=== PATIENT | female | born 1995 | race Caucasian/White ===

== ENCOUNTER 2024-09-20 15:55 | Emergency (ER) | payer MEDICAID, SELFPAY ==
[2024-09-20 16:06] VITALS: BP 100/57; PULSE 98; RESP 16; TEMP 36.9; O2SAT 99
[2024-09-20 16:07] VITALS: BMI 25.1
--- NOTE | 2024-09-20 16:18 | XR_ITS ---
Examination: CTA chest with intravenous contrast 2-D reconstructions 3-D reconstructions, vascular Date and time of exam: September 20, 2024 2101 hrs. Indications: Dyspnea cardiac palpitations and shortness of breath today, history pulmonary emboli 8 months ago CTDI: vol (mGy) 13.98 DLP: (mGycm) 344 Technique: Multiple axial sections of the thorax have been obtained. 3 mm slice thickness, from below the hemidiaphragms to above the apices of the lungs. Mediastinal and lung density settings have been obtained. 2-D sagittal and coronal reconstructions. 3-D angiographic renderings, 3-D volume renderings, 3D post processing, vascular maximum intensity projections obtained. Contrast administered is 100 cc Isovue-370 intravenous Low dose protocols were performed. One or more of the following dose reduction techniques were used; automated exposure control, adjustment of the mA and/or KV according to patient size, use of iterative reconstruction technique. Findings: No thoracic aortic aneurysm dilatation No pulmonary artery emboli No paratracheal tracheobronchial or bronchopulmonary adenopathy No pneumonia, pulmonary edema or pleural disease No visualized liver or splenic lesion as it then 10 mm cyst in the right lobe the liver No pancreatic mass Kidneys partially visualized no hydronephrosis The osseous structures are intact Impression: Negative for pulmonary artery emboli No pneumonia, pulmonary edema or pleural disease
--- NOTE | 2024-09-20 16:21 | PD.EDRME ---
Rapid Medical Screening Exam RME Arrival date/time: 09/20/24 15:55 29-year-old female with a history of SVT and PE 8 months ago reports with complaints of chest pain and shortness of breath Chief Complaint: Arrhythmia/Palpitations Time Seen by Provider: 09/20/24 16:12 Vital signs: Vital Signs Temperature 98.5 F 09/20/24 16:06 Pulse Rate 98 09/20/24 16:06 Respiratory Rate 16 09/20/24 16:06 Blood Pressure 100/57 L 09/20/24 16:06 Pulse Oximetry (%) 99 09/20/24 16:06 Oxygen Delivery Method Room Air 09/20/24 16:06
[2024-09-20 16:49] LABS: Basophils % (Auto) 0 % (0-2.5); Eosinophils # (Auto) 0.3 Thou/mm3 (0.0-0.5); Eosinophils % (Auto) 3 % (0-10); Hematocrit 41.8 % (36.0-46.0); Hemoglobin 14.2 g/dL (12.0-16.0); Immature Granulocytes % (Auto) 0 % (0-0); Immature Granulocytes Auto 0.03 Thou/mm3 (0.00-0.00); Lymphocytes # (Auto) 1.6 Thou/mm3 (1.0-4.8); Lymphocytes % (Auto) 17 % (10-50); Mean Corpuscular Volume 88 fL (80-100); Monocytes # (Auto) 0.8 Thou/mm3 (0.0-0.8); Monocytes % (Auto) 8 % (0-12); Neutrophils % (Auto) 72 % (37-80); Nucleated Red Blood Cell % 0 /100 WBC (0); Platelet Count 154 Thou/mm3 (140-440); RDW Standard Deviation 40.1 fL (36.4-46.3); Red Blood Count 4.74 Miln/mm3 (4.00-5.20); White Blood Count 9.7 Thou/mm3 (3.6-11.0)
[2024-09-20 17:07] LABS: Alanine Aminotransferase 20 U/L (10-49); Albumin, Serum 4.5 gm/dL (3.5-5.0); Albumin/Globulin Ratio 1.6 (1.2-2.2); Alkaline Phosphatase 61 U/L (46-116); Anion Gap 8 (7-16); Aspartate Amino Transferase 19 U/L (0-34); BUN/Creatinine Ratio 22 Ratio (12-20); Bilirubin,Total 0.4 mg/dL (0.3-1.2); Blood Urea Nitrogen 13 mg/dL (9-23); Calcium 9.6 mg/dL (8.3-10.6); Calcium (Corrected) 9.6 mg/dL (8.5-10.1); Carbon Dioxide 26.3 mMol/L (20.0-31.0); Chloride 105 mMol/L (98-107); Creatinine (Component) 0.6 mg/dL (0.6-1.3); Estimated Creatinine Clearance 145.9 mL/min (>60); Globulin 2.9 gm/dL (2.3-3.5); Glucose 98 mg/dL (74-106); Magnesium 1.8 mg/dL (1.6-2.6); Osmolality,Calculated 277 (275-295); Potassium 3.7 mMol/L (3.4-5.1); Sodium 139 mMol/L (136-145); Total Protein 7.4 gm/dL (5.7-8.2); Troponin I < 0.002 ng/mL (0.0-0.045); eGFR > 60 See Note
[2024-09-20 17:12] LABS: Partial Thromboplastin Time 22.2 Seconds (22.0-36.0); Prothrombin Time 11.3 Seconds (9.0-12.2)
--- NOTE | 2024-09-20 19:38 | PD.EDARRY ---
ED Arrhythmia Palp. RME/HPI General Chief Complaint: Arrhythmia/Palpitations Stated Complaint: HEART PALPITATIONS Time Seen by Provider: 09/20/24 16:12 Arrival date/time: 09/20/24 15:55 Limitations: no limitations RME / HPI RME / HPI narrative: 09/20/24 15:55 29-year-old female with a history of SVT and PE 8 months ago reports with complaints of chest pain and shortness of breath DR. ZAMUDIO MAIN ED EVALUATION: 29 year old female presents to the Emergency Department with complaints of chest pain since yesterday. Pain is described as stabbing and rated mild to moderate in severity. Associated symptoms include shortness of breath, cough, and runny nose. Patient denies any leg edema, or any other symptoms at this time. Last menstrual period was last month, unknown day. PMHx: SVT and PE 8 months ago at [place]; she states she is not taking any medication due to no insurance . Family history is significant for PE and cancer from mother. Social Hx: No tobacco, alcohol, or substance use. Related Data Previous Rx's ?Medication ?Instructions ?Recorded cyclobenzaprine 10 mg tablet 10 mg PO HS #10 tabs 06/05/22 clindamycin HCl 300 mg capsule 300 mg PO TID #30 caps 07/15/22 lidocaine HCl 2 % mucosal solution 20 ml PO TID PRN sore throat #100 07/15/22 (Lidocaine Viscous) mL Allergies Allergy/AdvReac Type Severity Reaction Status Date / Time metoprolol Allergy Severe Hives Verified 09/20/24 16:02 Review of Systems Review of Systems Systems Reviewed: All systems reviewed, normal except as documented Narrative Review of Systems: GEN: No fever, no chills, no weight loss EYES: No discharge, no visual changes, no pain HEENT: No ear pain, + congestion, no sore throat PULM: + shortness of breath, + cough CV: + chest pain, no dyspnea on exertion, no palpitations GI: No nausea, no vomiting, no diarrhea, no pain, no constipation : No frequency, no urgency and no dysuria MUSC/SKEL: No joint pain, no back pain SKIN: No rash PSYCH: No hallucinations, no depression HEME/LYMPH: No easy bleeding or bruising tendencies NEURO: No weakness, no headache Past Medical History Social History SMOKING STATUS: Never smoker SUBSTANCE USE: does not use ALCOHOL: Never Past Medical History Comments PMH COMMENT: SVT and PE 8 months ago at [place]; she states she is not taking any medication due to no insurance . Family history is significant for PE and cancer from mother. ED Exam General Limitations: Present no limitations General appearance: Present alert, in no apparent distress and other (fatigue looking) Head Head exam: Present atraumatic, normocephalic and normal inspection Eye Eye exam: Present normal appearance and EOMI; Absent miosis ENT ENT exam: Present normal exam, normal oropharynx and mucous membranes moist Neck Neck exam: Present normal inspection and trachea midline; Absent meningismus Chest Chest inspection: Present normal inspection and symmetric chest wall rise Respiratory Respiratory exam: Present normal lung sounds bilaterally Cardiovascular Cardiovascular exam: Present regular rate, tachycardia and normal heart sounds Abdominal Exam Abdominal exam: Present soft and normal bowel sounds; Absent distention, tenderness, guarding, rebound or rigidity Extremities Exam Extremities exam: Present normal inspection and full ROM Back Exam Back exam: Present normal inspection and full ROM Neurological Exam Neurological exam: Present alert, oriented X3 and normal gait; Absent motor sensory deficit Psychiatric Psychiatric exam: Present normal affect and anxious Skin Skin exam: Present warm, dry, intact and normal color Course Quality Measures none Orders Category Date Time Status CT Screening NOW Care 09/20/24 16:20 Active EKG (ED ONLY) *Do not use* NOW Care 09/20/24 16:[address] angio chest Stat Exams 09/20/24 16:18 Ordered EKG (ED Only) Stat Exams 09/20/24 16:18 Ordered CBC Stat Lab 09/20/24 16:36 Completed CMP [Comprehensive Metabolic Panel] Stat Lab 09/20/24 16:36 Completed HCG,Qualitative Serum Stat Lab 09/20/24 16:36 Received Mag [Magnesium] Stat Lab 09/20/24 16:36 Completed PT [Prothrombin Time with INR] Stat Lab 09/20/24 16:36 Completed PTT [Partial Thromboplastin Time] Stat Lab 09/20/24 16:36 Completed Troponin I Stat Lab 09/20/24 16:36 Completed Reevaluation(s) Reevaluation #1: Heart rate is 90. CT angio does not show pulmonary embolism or pneumonia. Time: 22:14 Vital Signs Vital signs: Vital Signs Temperature 98.5 F 09/20/24 16:06 Pulse Rate 98 09/20/24 16:06 Respiratory Rate 16 09/20/24 16:06 Blood Pressure 100/57 L 09/20/24 16:06 Pulse Oximetry (%) 99 09/20/24 16:06 Oxygen Delivery Method Room Air 09/20/24 16:06 Procedures -ED EKG Interpretation #1: Date of EK09/20/24 Time of EK:16 Rate: 87 Interpretation: Interpreted by me Additional EKG comment: sinus rhythm, rate 87, left atrial enlargement, nonspecific ST changes in lead 3, same nonspecific changes shown in EKG from 06/07/22. Arrhythmia/Palpitations MDM Narrative MDM Narrative:: I, Mary Tompkins, am scribing for and in the presence of Dr. Zamudio. Differential diagnosis includes PE, pneumonia, dehydration, other viral etiology, musculoskeletal. The patient has no evidence of SVT here in the emergency department. She is treated with IV fluids for her tachycardia and Toradol IV for chest wall pain.. CT angio is negative for PE, pleural effusion, or pneumonia. Labs are interpreted by me. No acute leukocytosis, anemia, or thrombocytopenia. LFTs are normal and do not suspect biliary involvement, hCG is negative. Troponin x 2 are negative. At this time I do not believe this patient has underlying coronary artery disease. Patient does not report that she was told that she has clotting disorder . Possible PE 1 year ago. She will need to follow-up with primary care to establish care. Patient data External records reviewed:: [facility] previous records (Reviewed last ED visit dated 07/15/22 discharged with the following: Pharyngitis.) Clinical information provided by:: patient Social determinants that could affect healthcare access:: none Patient has the following chronic illnesses:: SVT and PE 8-12 months ago at [place]; she states she is not taking any medication due to no insurance . Family history is significant for PE and cancer from mother. How is presenting disease/condition affected by chronic disease/condition?: exacerbated by Evaluation data The following diagnostics were reviewed and interpreted by me:: lab results, radiology exam(s) and EKG tracing(s) Lab and/or radiology exams considered but not ordered:: none Interpretation Summary: Procedure(s): CT angio chest Accession Number(s): [id number] cc: Jaspreet Cotto MD; NO PRIMARY/FAMILY,PHYSICIAN; Bobby Olivares PA-C~ Examination: CTA chest with intravenous contrast 2-D reconstructions 3-D reconstructions, vascular Date and time of exam: September 20, 2024 2101 hrs. Indications: Dyspnea cardiac palpitations and shortness of breath today, history pulmonary emboli 8 months ago CTDI: vol (mGy) 13.98 DLP: (mGycm) 344 Technique: Multiple axial sections of the thorax have been obtained. 3 mm slice thickness, from below the hemidiaphragms to above the apices of the lungs. Mediastinal and lung density settings have been obtained. 2-D sagittal and coronal reconstructions. 3-D angiographic renderings, 3-D volume renderings, 3D post processing, vascular maximum intensity projections obtained. Contrast administered is 100 cc Isovue-370 intravenous Low dose protocols were performed. One or more of the following dose reduction techniques were used; automated exposure control, adjustment of the mA and/or KV according to patient size, use of iterative reconstruction technique. Findings: No thoracic aortic aneurysm dilatation No pulmonary artery emboli No paratracheal tracheobronchial or bronchopulmonary adenopathy No pneumonia, pulmonary edema or pleural disease No visualized liver or splenic lesion as it then 10 mm cyst in the right lobe the liver No pancreatic mass Kidneys partially visualized no hydronephrosis The osseous structures are intact Impression: Negative for pulmonary artery emboli No pneumonia, pulmonary edema or pleural disease Dictated By: Jaspreet Cotto MD Medications / Prescriptions Medications or Prescriptions considered but not ordered:: none Medication administrations:: see above if any Consultations Consultation(s) initiated? (list below): No Diagnosis Differential diagnosis arrhythmia/palpitations: palpitations and other (PE, pneumonia, dehydration, arrhythmia, ) Most likely diagnosis given after review of the tests above:: see below Admission Indicated Admission indicated?: not indicated Admission Request Was there a request for admission?: No Disposition Plan Disposition Plan: Discharge Discharge Attestation Discharge Attestation: The patient and all family members were given an opportunity to ask questions and understood the discharge instructions. Discharge instructions specifically effects, indications for sooner follow up or return to the emergency department, and the expected course of current diagnosis. Patient condition: Stable Discharge Plan Plan Patient Disposition: HOME (Self Care) Patient condition on transfer: Stable Prescriptions/Referrals Prescriptions/Med Rec: No Action cyclobenzaprine 10 mg tablet 10 mg PO HS Qty: 10 0RF clindamycin HCl 300 mg capsule 300 mg PO TID Qty: 30 0RF lidocaine HCl [Lidocaine Viscous] 2 % solution 20 ml PO TID PRN (Reason: sore throat) Qty: 100 0RF Referrals: No Primary/Family,Physician [Primary Care Provider] - In 1 week Problem List Clinical Impression: Atypical chest pain Patient/Caregiver Discharge Instructions Education Materials: ED Chest Pain, Uncertain Cause Additional Instructions: Today your EKG does not show that you are having a supraventricular tachycardia and your laboratory findings are reassuring. CT scan of your chest does not show that you have a new pulmonary embolism, pneumonia or any other significant life-threatening abnormality. 1. Stay hydrated with fluids. You can take [id number] Tylenol 650 mg 3 times a day and/or ibuprofen 600 mg 3 times a day with food for the next 2 to 3 days. 2. If you do not have a primary care,you can follow-up at the resident clinic at [facility] [address], [address], [place], [place], . Please call tomorrow to get an appointment in the next 1 week. Print Language: Dutch Stand Alone Forms: Vijaya Award Info., Patient Portal Info Letter
[2024-09-20 19:42] VITALS: BP 102/69; PULSE 74; RESP 16; TEMP 37.1; O2SAT 100
[2024-09-20 19:49] LABS: HCG,Qualitative Serum Negative
[2024-09-20 20:21] VITALS: BP 118/66; PULSE 90; RESP 18; O2SAT 100
[2024-09-20] MEDS: SODIUM CHLORIDE 0.9% 1000 ML 1,000 ML 999 ML IV ×2 (20:48→20:49)
[2024-09-20 21:59] LABS: Troponin I < 0.002 ng/mL (0.0-0.045)
[2024-09-20] MEDS: KETOROLAC INJ 30 MG/ML VIAL IVP (22:30)
== END 2024-09-21 00:30 | disposition home or self-care (01) ==
PROVIDERS: Physician Assistant; Emergency Provider Emergency Medicine
DX: R07.89 Other chest pain (principal); R94.31 Abnormal electrocardiogram [ECG] [EKG]
CPT/HCPCS: 36415; 71275; 80053; 83735; 84484; 84703; 85025; 85610; 85730; 93005; 99285; A4649; J1885; J7030; Q9967

== ENCOUNTER → 2024-10-13 | Outpatient (CLI) | payer MEDICAID, SELFPAY ==
--- NOTE | 2024-10-13 14:35 | XR_ITS ---
Examination: Knee bilateral, 6 views Technique: Knee AP, lateral, oblique each knee total 6 views Date and time of exam: October 13, 2024 1452 hrs. Indications: Patient fell 2 weeks ago with injury to both knees, bilateral knee pain Findings: Adequate bone density. No fracture or dislocation involving either knee No opaque foreign body Impression: No fracture or dislocation involving either knee
== END | disposition home or self-care (01) ==
PROVIDERS: PCP Family Medicine; Referring Provider Family Medicine; Visit Provider Family Medicine
DX: S89.92XA Unspecified injury of left lower leg, initial encounter (principal); S89.91XA Unspecified injury of right lower leg, initial encounter; W19.XXXA Unspecified fall, initial encounter
CPT/HCPCS: 73562

== ENCOUNTER → 2024-10-26 | Outpatient (CLI) | payer MEDICAID, SELFPAY ==
[2024-10-26 11:08] LABS: Alanine Aminotransferase 19 U/L (10-49); Albumin, Serum 4.2 gm/dL (3.5-5.0); Albumin/Globulin Ratio 1.5 (1.2-2.2); Alkaline Phosphatase 52 U/L (46-116); Anion Gap 8 (7-16); Aspartate Amino Transferase 19 U/L (0-34); BUN/Creatinine Ratio 22 Ratio (12-20); Bilirubin,Total 0.6 mg/dL (0.3-1.2); Blood Urea Nitrogen 13 mg/dL (9-23); Calcium 9.3 mg/dL (8.3-10.6); Calcium (Corrected) 9.3 mg/dL (8.5-10.1); Carbon Dioxide 23.6 mMol/L (20.0-31.0); Chloride 108 mMol/L (98-107); Creatinine (Component) 0.6 mg/dL (0.6-1.3); Globulin 2.8 gm/dL (2.3-3.5); Glucose 89 mg/dL (74-106); Osmolality,Calculated 278 (275-295); Potassium 4.1 mMol/L (3.4-5.1); Sodium 140 mMol/L (136-145); eGFR > 60 See Note
[2024-10-26 12:21] LABS: HIV (1&2) Antibody Rapid Non-Reactive
[2024-10-26 16:03] LABS: Chlamydia trachomatis PCR Negative (Not Detect); Neisseria Gonorrhoeae DNA PCR Negative (Not Detect); Trichomonas Negative (Negative)
[2024-10-26 19:09] LABS: Hepatitis C Antibody Non Reactive (Non React)
[2024-10-26 19:21] LABS: Syphilis Nonreactive (Nonreactive)
[2024-10-26 19:27] LABS: Glucose Estimated Average 94 mg/dL (80-131); Hemoglobin A1C 4.9 % Hgb (4.8-6.0)
== END | disposition home or self-care (01) ==
LOC: COPL 09:07
PROVIDERS: PCP Family Medicine; Referring Provider Family Medicine; Visit Provider Family Medicine
DX: Z11.4 Encounter for screening for human immunodeficiency virus [HIV] (principal); Z11.59 Encounter for screening for other viral diseases; Z11.3 Encounter for screening for infections with a predominantly sexual mode of transmission; Z83.3 Family history of diabetes mellitus; Z84.1 Family history of disorders of kidney and ureter
CPT/HCPCS: 36415; 80053; 83036; 86703; 86780; 86803; 87491; 87591; 87661

== ENCOUNTER → 2024-11-27 | Outpatient (CLI) | payer MEDICAID, SELFPAY ==
--- NOTE | 2024-11-27 14:30 | XR_ITS ---
Exam: MRI knee without contrast, left Date and time of exam: November 27, 2024 1450 hours INDICATIONS: Left knee pain joint popping joint clicking instability swelling 9 years worse the last 2 months Technique: Multiple axial, coronal, and sagittal sections on the knee have been obtained. T2-Weighted sagittal, fat-suppressed images, TR 3,500, TE 62, T2 weighted coronal fat-saturated images, TR 3,500, TE 62 Proton density sagittal sections, TR 1800, TE 31. T-1 weighted coronal images, TR 524, TE 13.0 Findings: Medial meniscus anterior horn intact. Medial meniscus, body is intact. Posterior horn medial meniscus oblique linear tear communicating inferior articular surface. Lateral meniscus anterior horn is intact Lateral meniscus, body is intact Posterior horn lateral meniscus is intact Anterior cruciate ligament mild sprain. Posterior cruciate ligament appears intact. Knee effusion is small. Quadriceps and patellar tendons appear intact. There is no evidence of tendinosis. Inflammatory change or fracture of Hoffa's fat pad is not seen. Medial patellar facet demonstrates no thinning. Lateral patellar facet cartilage demonstrates no thinning. Trochlear cartilage demonstrates no thinning. Marrow signal adequate. Medial collateral ligament appears intact. No meniscocapsular separation is seen. Illiotibial band and fibular collateral ligament are intact. Biceps femoris tendons appear intact. Medial femoral condylar articular cartilage demonstrates mild thinning. Lateral femoral condylar articular cartilage demonstratesmild thinning. Tibial plateau cartilage demonstrates mild thinning. Impression: Oblique linear tear posterior horn medial meniscus Mild sprain anterior cruciate ligament
== END | disposition home or self-care (01) ==
PROVIDERS: PCP Family Medicine; Referring Provider Family Medicine; Visit Provider Family Medicine
DX: S83.242A Other tear of medial meniscus, current injury, left knee, initial encounter (principal); S83.512A Sprain of anterior cruciate ligament of left knee, initial encounter; X58.XXXA Exposure to other specified factors, initial encounter
CPT/HCPCS: 73721

== ENCOUNTER → 2025-04-20 | Outpatient (CLI) | payer MEDICAID, SELFPAY ==
--- NOTE | 2025-04-20 17:00 | XR_ITS ---
Exam: MRI knee without contrast, left Date and time of exam: April 20, 2025, 1643 hours, comparison 12/25/2024. INDICATIONS: Left knee pain post injury 2017, surgical repair of this year, persistent pain posterior to the patella, joint clicking, instability, stiffness Technique: Multiple axial, coronal, and sagittal sections on the knee have been obtained. T2-Weighted sagittal, fat-suppressed images, TR 3,500, TE 62, T2 weighted coronal fat-saturated images, TR 3,500, TE 62 Proton density sagittal sections, TR 1800, TE 31. T-1 weighted coronal images, TR 524, TE 13.0 Findings: Medial meniscus anterior horn is intact. Medial meniscus, body peripheral oblique linear tear. Posterior horn medial meniscus peripheral oblique linear tear which appears to communicate with the inferior articular surface. Lateral meniscus anterior horn is intact Lateral meniscus, body is intact Posterior horn lateral meniscus is intact Anterior cruciate ligament high-grade sprain. Posterior cruciate ligament appears intact. Knee effusion is moderate. Quadriceps and patellar tendons appear intact. There is no evidence of tendinosis. Inflammatory change or fracture of Hoffa's fat pad is not seen. Medial patellar facet demonstrates no thinning. Lateral patellar facet cartilage demonstrates no thinning. Trochlear cartilage demonstrates no thinning. Marrow signal adequate. Medial collateral ligament appears intact. No meniscocapsular separation is seen. Illiotibial band and fibular collateral ligament are intact. Biceps femoris tendons appear intact. Medial femoral condylar articular cartilage demonstrates mild thinning. Lateral femoral condylar articular cartilage demonstratesmild thinning. Tibial plateau cartilage demonstrates mild thinning. Impression: Tears of the body and posterior horn medial meniscus High-grade sprain anterior cruciate ligament
== END | disposition home or self-care (01) ==
LOC: SMRI 16:17
PROVIDERS: PCP Family Medicine; Referring Provider Orthopaedic Surgery; Visit Provider Orthopaedic Surgery
DX: S83.242A Other tear of medial meniscus, current injury, left knee, initial encounter (principal); S83.512A Sprain of anterior cruciate ligament of left knee, initial encounter; X58.XXXA Exposure to other specified factors, initial encounter
CPT/HCPCS: 73721

== ENCOUNTER → 2025-05-17 | Outpatient (CLI) | payer MEDICAID, SELFPAY ==
--- NOTE | 2025-05-17 16:00 | XR_ITS ---
Examination: Pelvic ultrasound, transabdominal, complete Technique: Transabdominal ultrasound of the pelvis performed using grayscale imaging Date and time of exam: May 17, 2025 1632 hours INDICATIONS: Irregular heavy menses four years FINDINGS: Uterus 8.3 cm endometrial stripe 1.0 cm No uterine mass or intrauterine gestation Right ovary 3.1 cm arterial flow Left ovary 2.8 cm arterial flow IMPRESSION: Negative study
== END | disposition home or self-care (01) ==
PROVIDERS: PCP Family Medicine; Referring Provider Obstetrics & Gynecology; Visit Provider Obstetrics & Gynecology
DX: N92.0 Excessive and frequent menstruation with regular cycle (principal)
CPT/HCPCS: 76856